=== PATIENT | male | born 1985 | race Caucasian/White ===

== ENCOUNTER 2016-12-05 22:22 | Emergency (ER) | payer SELFPAY ==
[~2016-12-05] VITALS: Ht 175.3 cm; Wt 75.0 kg
[~2016-12-05 22:22] MED LIST: NOCURR
[2016-12-05] MEDS ORDERED: KETOROLAC TROMETHAMINE 60 MG/2 ML VIAL IM ONE (23:30)
[2016-12-06 00:32] VITALS: BP 133/95
== END 2016-12-06 01:12 | disposition home or self-care (01) ==
LOC: EMS 22:24
DX: M79.89 Other specified soft tissue disorders (principal)
CPT/HCPCS: 73130; 96372; 99284; J1885

== ENCOUNTER 2021-10-31 21:28 | Emergency (ER) | payer SELFPAY ==
[~2021-10-31] VITALS: Ht 175.3 cm; Wt 82.3 kg
[2021-10-31 23:02] LABS: COVID AG,FIA SOURCE NASOPHARYNGEAL
[2021-10-31 23:27] LABS: INFLUENZA TYPE A NEGATIVE FOR TYPE A (NEGATIVE); INFLUENZA TYPE B NEGATIVE FOR TYPE B (NEGATIVE)
[2021-10-31] MEDS ORDERED: ACETAMINOPHEN/CODEINE 300-30 MG TABLET PO ONE (23:30)
[2021-10-31] MEDS ORDERED: IBUPROFEN 600 MG TABLET PO ONE (23:30)
[2021-10-31] MEDS ORDERED: GuaiFENesin/D-METHORPHAN [SUGAR-FREE] 200-20MG/10 ML SYRUP UDCUP PO ONE (23:30)
[2021-11-01 00:55] VITALS: BP 135/81
== END 2021-11-01 00:56 | disposition home or self-care (01) ==
LOC: EMS 21:29
DX: J06.9 Acute upper respiratory infection, unspecified (principal); I10 Essential (primary) hypertension; E05.90 Thyrotoxicosis, unspecified without thyrotoxic crisis or storm; Z20.822 Contact with and (suspected) exposure to COVID-19
CPT/HCPCS: 87804; 99284; Z7502; Z7610

== ENCOUNTER 2022-10-14 11:06 | Emergency (ER) | payer MEDICAID, OTHER ==
[~2022-10-14] VITALS: Ht 175.3 cm; Wt 84.5 kg
[2022-10-14 11:33] VITALS: BP 126/78
== END 2022-10-14 12:00 | disposition left against medical advice (07) ==
LOC: EMS 12:00
DX: Z53.21 Procedure and treatment not carried out due to patient leaving prior to being seen by health care provider (principal)
CPT/HCPCS: 99283

== ENCOUNTER 2023-11-07 18:21 | Emergency (ER) | payer MEDICAID, OTHER ==
[~2023-11-07] VITALS: Ht 175.3 cm; Wt 79.5 kg
[2023-11-07 18:23] VITALS: TEMP 98.2
[2023-11-07] MEDS ORDERED: PERTUSS(ACELL),DIPH,TET VAC/PF 0.5 ML SYRINGE IM. ONE (18:45)
[2023-11-07 20:00] VITALS: BP 119/71; PULSE 89; RESP 17
[2023-11-07] MEDS ORDERED: CEPH-558 PO (21:43)
== END 2023-11-07 22:44 | disposition home or self-care (01) ==
LOC: EMS 18:22
DX: M79.642 Pain in left hand (principal); M79.641 Pain in right hand
CPT/HCPCS: 90471; 90715; 99283

== ENCOUNTER 2024-02-18 01:02 | Emergency (ER) | payer OTHER ==
[~2024-02-18] VITALS: Ht 172.7 cm; Wt 68.2 kg
[~2024-02-18 01:02] MED LIST changes: +CEPH-558 PO; -NOCURR
[2024-02-18 01:26] VITALS: BP 124/79; PULSE 105; RESP 16; TEMP 98
== END 2024-02-18 03:08 ==
LOC: EMS 01:05
DX: S42.001A Fracture of unspecified part of right clavicle, initial encounter for closed fracture (principal); I10 Essential (primary) hypertension; F12.90 Cannabis use, unspecified, uncomplicated; X58.XXXA Exposure to other specified factors, initial encounter; Y93.89 Activity, other specified; Y92.89 Other specified places as the place of occurrence of the external cause; Y99.8 Other external cause status
CPT/HCPCS: 99283